=== PATIENT | female | born 1960 | race Caucasian/White ===

== ENCOUNTER → 2020-01-18 | Outpatient (CLI) | payer BC ==
[2019-07-20 13:50] VITALS: BP 113/71
[~2020-01-18] MED LIST: DENOSUMAB 60 MG/1 ML (PROLIA) SQ ONE; DENOSUMAB 60 MG/1 ML (PROLIA) SQ SCH
[2020-01-18 13:15] VITALS: BP 113/70
== END ==
LOC: SDC 07-20 12:47
PROVIDERS: ATTEND Obstetrics & Gynecology
DX: M81.8 Other osteoporosis without current pathological fracture (principal)
CPT/HCPCS: 96372

== ENCOUNTER → 2020-07-11 | Outpatient (CLI) | payer BC ==
[~2020-07-11] MED LIST changes: -DENOSUMAB 60 MG/1 ML (PROLIA) SQ SCH
[2020-07-11 13:50] VITALS: BP 91/63
== END ==
LOC: SDC 12:55
PROVIDERS: ATTEND Obstetrics & Gynecology
DX: M81.0 Age-related osteoporosis without current pathological fracture (principal)
CPT/HCPCS: 96372

== ENCOUNTER 2022-06-09 05:29 | Outpatient (CLI) | payer BC, OTHER ==
[~2022-06-09] VITALS: Ht 170.2 cm; Wt 79.7 kg
[2022-06-09] MEDS ORDERED: CALC-308 PO (10:39)
[2022-06-09] MEDS ORDERED: VITAMIN D (10:39)
[2022-06-09] MEDS ORDERED: RALO60TA12 PO (10:39)
[2022-06-09] MEDS ORDERED: LISI1TAB44 PO (10:39)
== END 2022-06-09 11:34 | disposition home or self-care (01) ==
LOC: PREOP 05:29
PROVIDERS: ATTEND Obstetrics & Gynecology
DX: Z01.818 Encounter for other preprocedural examination (principal)

== ENCOUNTER 2022-06-13 09:43 | Day surgery (SDC) | payer OTHER ==
[2022-06-13] VITALS (13 sets, daily range): BP systolic 108–134; BP diastolic 56–80
[~2022-06-13] VITALS: Ht 170 cm; Wt 79.7 kg
--- NOTE | 2022-06-13 08:34 | Progress Note-Post Operative ---
Post-Operative Progess Note Surgeon (s)/Title Lawyer (s) Surgeon SUMEET ONEAL MD Title Lawyer: LUIS EDUARDO DESAI MD Pre-Operative Diagnosis CURT Post-Operative Diagnosis SAME Procedure & Operative Findings Date of Procedure 06/13/22 Procedure Performed/Findings PVS AND CYSTO Anesthesia Type GENERAL Estimated Blood Loss Estimated blood loss (mL): NONE Specimens/Packing Specimens Removed NONE Packin GM ESTRACE VAG PACK SUMEET ONEAL MD Jun 13, 2022 08:34
[~2022-06-13 09:43] MED LIST changes: +CALC-308 PO; -DENOSUMAB 60 MG/1 ML (PROLIA) SQ ONE; +LISI1TAB44 PO; +RALO60TA12 PO; +VITAMIN D
[2022-06-13] MEDS ORDERED: ESTRADIOL VAGINAL CREAM 42.5 GM (ESTRACE) VG ONE ×2 (10:21→11:58)
[2022-06-13] MEDS ORDERED: ceFAZolin INJECTION 1,000 MG in NS (IVPB) 50 ML IV ONE (10:30)
--- NOTE | 2022-06-13 10:33 | Progress Note-Pre Operative ---
Pre-Operative Progress Note Date of Available H&P: Jun 13, 2022 Date H&P Reviewed: Jun 13, 2022 Time H&P Reviewed: 10:32 History & Physical: H&P Reviewed, Patient Examed, No changes noted, Changes noted below Changes from last HP H&P updated with interim Note Pre-Operative Diagnosis: Vaginal prolapse and stress urinary incontinence LUIS EDUARDO DESAI MD Jun 13, 2022 10:33
--- NOTE | 2022-06-13 10:34 | Progress Note-Post Operative ---
Post-Operative Progess Note Surgeon (s)/Dependency Case Manager (s) Surgeon LUIS EDUARDO DESAI MD Dependency Case Manager: Several Pre-Operative Diagnosis Vaginal prolapse and stress urinary incontinence Post-Operative Diagnosis Same Procedure & Operative Findings Date of Procedure 06/13/22 Procedure Performed/Findings Anterior and posterior vaginal repairs with enterocele repair and with Sacrospinous ligament suspension and with Dr. Hawkins doing a pubovaginal sling and cystoscopy Anesthesia Type General anesthesia Estimated Blood Loss Estimated blood loss (mL): 50 cc Specimens/Packing Specimens Removed None Packing: Kerlix gauze in the vagina LUIS EDUARDO DESAI MD Jun 13, 2022 10:34
[2022-06-13] MEDS ORDERED: LIDOCAINE PF 2% 5 ML (XYLOCAINE) VIAL ONE (10:37)
[2022-06-13] MEDS ORDERED: proPOfol 200 MG/20 ML (DIPRIVAN) VIAL IV ONE (10:37)
[2022-06-13] MEDS ORDERED: ONDANSETRON 4 MG/2 ML (SDV) Z0FRAN ONE (10:37)
[2022-06-13] MEDS ORDERED: ROCURONIUM 10 MG/ML 5 ML SYRINGE IV ONE (10:37)
[2022-06-13] MEDS ORDERED: MIDAZOLAM 2 MG/2 ML (VERSED) VIAL ONE (10:38)
[2022-06-13] MEDS ORDERED: fentaNYL INJ 100 MCG/2 ML AMP ONE (10:38)
[2022-06-13] MEDS ORDERED: IBUP-1780 PO (10:39)
[2022-06-13] MEDS ORDERED: OXYC-199 PO (10:39)
[2022-06-13] MEDS ORDERED: DOCU-143 PO (10:39)
--- NOTE | 2022-06-13 10:41 | Discharge Inst-Surgical ---
Discharge Inst-Surgical Depart Medication/Instructions New, Converted or Re-Newed RX: Transmitted to Pharmacy Consults/Follow Up Patient Instructions: As directed Orders & Referrals Follow Up Appt: Call to make follow up appt. for patient in 4 weeks. Activity: Rest for 24 hours, than as tolerated. Prescription for Percocet Motrin and Colace have been transmitted electronically to patient's pharmacy Diet: As tolerated shower or tub bathe as desired. No driving for 24 hours, no alcoholic beverages for 24 hours, and nothing per vagina (no tampons, douching, or intercoarse) for 2 weeks. No lifting over 10 to 15 pounds for the next 4 weeks Patient to return to the clinic as soon as possible for: Temperature greater than 101F, Severe Pain, Foul discharge from incision or vagina, Excessive Bleeding (more than a period). Activity Activity as Tolerated: No Diet Discharge Diet: No Restrictions LUIS EDUARDO DESAI MD Jun 13, 2022 10:41
[2022-06-13] MEDS ORDERED: ONDANSETRON 4 MG/2 ML (SDV) Z0FRAN IV ONE (10:45)
[2022-06-13] MEDS ORDERED: PROMETHAZINE INJ 25 MG/ML (PHENERGAN) AMP IM PRN (10:45)
[2022-06-13] MEDS ORDERED: SCOPOLAMINE 1.5 MG (TRANSDERM-SCOP) PATCH TOP ONE (10:45)
[2022-06-13] MEDS ORDERED: MEPERIDINE (DEMEROL) INJ 100 MG/ML IVP PRN (10:45)
[2022-06-13] MEDS ORDERED: FAMOTIDINE 20MG/2ML IV (PEPCID) IV ONE (10:45)
[2022-06-13] MEDS ORDERED: ESTROGENS CONJ INJECTION 25 MG in WATER (STERILE) FOR INJECTION 5 ML IV ONE (10:45)
[2022-06-13] MEDS ORDERED: oxyCODONE/APAP 5/325MG (PERCOCET 5) TABLET PO PRN (10:45)
[2022-06-13] MEDS ORDERED: BENZOCAINE/MENTHOL (DERMOPLAST) 56 ML CAN TP PRN (10:45)
[2022-06-13 11:06] LABS: BASOPHILS # (AUTO) 0.1 10^3/uL (0.0-0.1); BASOPHILS % (AUTO) 1 % (0-10); EOSINOPHILS # (AUTO) 0.1 10^3/uL (0.0-0.3); EOSINOPHILS % (AUTO) 2 % (0-10); HEMATOCRIT 42 % (35-52); HEMOGLOBIN 13.9 g/dL (11.5-16.0); LYMPHOCYTES # (AUTO) 1.7 10^3/uL (1.0-4.0); LYMPHOCYTES % (AUTO) 37 % (12-44); MEAN CORPUSCULAR HEMOGLOBIN 28 pg (25-34); MEAN CORPUSCULAR HGB CONC 33 g/dL (32-36); MEAN CORPUSCULAR VOLUME 86 fL (80-99); MEAN PLATELET VOLUME 10.3 fL (9.0-12.2); MONOCYTES # (AUTO) 0.4 10^3/uL (0.0-1.0); MONOCYTES % (AUTO) 10 % (0-12); NEUTROPHILS # (AUTO) 2.2 10^3/uL (1.8-7.8); NEUTROPHILS % (AUTO) 50 % (42-75); PLATELET COUNT 192 10^3/uL (130-400); WHITE BLOOD COUNT 4.5 10^3/uL (4.3-11.0)
[2022-06-13] MEDS: LACTATED RINGERS 1,000 ML IV PRN ×2 (11:28→13:07)
[2022-06-13] MEDS ORDERED: SEVOFLURANE (ULTANE) 15 ML INHAL SOLN ONE (12:42)
[2022-06-13] MEDS ORDERED: ESTROGENS CONJ INJECTION 5 ML ONE (12:53)
[2022-06-13] MEDS ORDERED: KETOROLAC 30 MG/ML VIAL ONE (12:53)
[2022-06-13] MEDS ORDERED: WATER (STERILE) FOR INJECTION 10 ML ONE (12:54)
--- NOTE | 2022-06-13 12:54 | Anesthesia-General Post-Op ---
General Patient Condition Mental Status/LOC: Same as Preop Cardiovascular: Satisfactory Nausea/Vomiting: Absent Respiratory: Satisfactory Pain: Controlled Complications: Absent Post Op Complications Complications None Follow Up Care/Instructions Patient Instructions None needed. Anesthesia/Patient Condition Patient Condition Patient is doing well, no complaints, stable vital signs, no apparent adverse anesthesia problems. No complications reported per nursing. RAMA JOHNSON CRNA Jun 13, 2022 12:54
[2022-06-13] MEDS ORDERED: fentaNYL INJ 100 MCG/2 ML AMP IVP ONE (13:00)
[2022-06-13] MEDS ORDERED: ONDANSETRON 4 MG/2 ML (SDV) Z0FRAN IVP PRN (13:00)
[2022-06-13] MEDS ORDERED: MEPERIDINE (DEMEROL) INJ 50 MG/ML IVP ONE (13:00)
[2022-06-13] MEDS ORDERED: morphine INJ 10 MG/ML 1ML (SYR OR VIAL) IVP ONE (13:00)
[2022-06-13] MEDS: KETOROLAC 30 MG/ML VIAL IV SCH ×2 (13:06→18:55)
[2022-06-13] MEDS ORDERED: KETOROLAC 30 MG/ML VIAL IV SCH (14:00)
[2022-06-13] MEDS ORDERED: MEPERIDINE (DEMEROL) INJ 100 MG/ML IM PRN (18:45)
[2022-06-13] MEDS: D5 LR IV SOLUTION 1,000 ML IV SCH ×2 (19:19→19:51)
[2022-06-13] MEDS: ONDANSETRON 4 MG/2 ML (SDV) Z0FRAN IVP PRN ×2 (19:50→23:49)
--- NOTE | 2022-06-13 23:42 | OPERATIVE REPORT ---
DATE OF SERVICE: 06/13/2022 PREOPERATIVE DIAGNOSES: Vaginal prolapse and stress urinary incontinence. POSTOPERATIVE DIAGNOSES: Vaginal prolapse and stress urinary incontinence. PROCEDURE: Anterior and posterior vaginal repair with enterocele repair as well as sacrospinous ligament suspension and with Dr. Remy doing a pubovaginal sling and cystoscopy. DESCRIPTION OF PROCEDURE: With the patient in the supine position, under satisfactory general anesthesia, she was repositioned in the dorsal lithotomy position in the Ezekiel stirrups and prepped and draped in the usual fashion for vaginal surgery. Weighted speculum was placed in the posterior fornix of the vagina. Anterior vaginal wall was grasped with 2 Marleny clamps and the vaginal wall was opened in the midline. The patient had a third-degree plus cystocele. The bladder wall was carefully dissected off of the bladder back to the pubic rami bilaterally. The bladder was then repositioned in the pelvis. The endopelvic fascia and the bladder wall were plicated with 2-0 Vicryl sutures in 3 layers to elevate the bladder back into the pelvis and to lengthen the urethra. At this point, Dr. Remy assumed care of the patient for a pubovaginal sling and cystoscopy, which he will dictate. Upon completion of Dr. Remy portion of the procedure, which I had stayed to assist. I resumed care of the patient, resected the redundant anterior vaginal wall muscularis and mucosa and then closed the vaginal wall with a running locked suture of 3-0 Vicryl Rapide. Hemostasis was complete and good support was evident. Dr. Remy left the Duckworth catheter to dependent drainage and was draining clear yellow urine. Posterior repair was effected by placing Marleny clamps on the perineum and the hymenal ring at 5 and 7 o'clock position and an inverted triangle of skin was removed from the perineal body in the upright triangle from the posterior vaginal floor. The rectovaginal space was then entered sharply and dissected bluntly to the apex of the vagina, where it was explored for an enterocele. There was a relatively moderate sized enterocele that was reduced and then plicated with two 2-0 Vicryl pursestring sutures. This obliterated the enterocele. The rectovaginal space was then obliterated with additional sutures of 2-0 Vicryl and the perineal body was restored with the same sutures. Redundant posterior vaginal wall muscularis and mucosa was removed sharply. Sacrospinous ligament suspension sutures had been placed prior to obliterating the rectovaginal space, 2-0 Ethibond using the Capio device. Those sutures were double-armed, each arm, both sutures were brought out through the apex of the vagina. They were now tied, pulling the vagina well back up into the pelvis. The posterior vaginal wall muscularis and mucosa that was redundant had been removed. The vaginal wall was closed with a running locked suture also of 3-0 Vicryl Rapide that closure had continued to the hymenal ring and down on the perineal body and back up subcuticularly to the hymenal ring, where the suture was tied. Digital rectal exam confirmed no stricture or stenosis of the rectum and no sutures into it through the rectal mucosa. The sacrospinous ligament suspension sutures were tied that did support to the apex of the vagina into the pelvis nicely. Duckworth catheter was left to dependent drainage. Sponge and needle counts were correct. Blood loss was around 50 mL. The patient was now uneventfully awakened from her general anesthesia and transferred to recovery room in stable condition. Job ID: [id number] DocumentID: [id number] Dictated Date: 06/13/2022 13:42:27 Hardware Engineering Manager Date: 06/13/2022 23:40:00 Dictated By: LUIS EDUARDO DESAI MD
[2022-06-14 00:42] VITALS: BP 103/55
[2022-06-14] MEDS: KETOROLAC 30 MG/ML VIAL IV SCH ×2 (00:42→06:47)
[2022-06-14] MEDS: D5 LR IV SOLUTION 1,000 ML IV SCH (03:49)
[2022-06-14 03:57] VITALS: BP 92/45
[2022-06-14 08:14] VITALS: BP 91/54
[2022-06-14] MEDS ORDERED: DOCUSATE SODIUM 100 MG (COLACE) CAP PO SCH (09:00)
--- NOTE | 2022-06-14 09:50 | Progress Note ---
Standard Progress Note Progress Notes/Assess & Plan Date Seen by a Provider: Jun 14, 2022 Time Seen by a Provider: 09:49 Progress/Assessment & Plan This patient is without complaint. She is ambulating, voiding, tolerating oral intake well and has good pain control. Patient denies chest pain, denies shortness of breath, denies nausea and vomiting, and denies headache. Vital Signs Date Time Temp Pulse Resp B/P (MAP) Pulse Ox O2 Delivery O2 Flow Rate FiO2 06/14/22 08:14 37.5 68 18 91/54 (66) 99 Room Air 06/14/22 03:57 36.0 55 18 92/45 (61) 96 Nasal Cannula 3.00 06/14/22 00:42 36.6 68 18 103/55 (71) 96 Nasal Cannula 3.00 06/13/22 20:37 96 Nasal Cannula 3.00 06/13/22 20:37 36.3 77 18 108/56 (73) 96 Nasal Cannula 3.00 06/13/22 20:36 87 Room Air 06/13/22 18:53 36.0 69 18 110/64 (79) 96 Room Air 06/13/22 16:27 93 Nasal Cannula 2.00 06/13/22 14:40 60 16 117/56 (76) 99 Room Air 06/13/22 14:05 35.6 67 16 134/65 (88) 100 Nasal Cannula 3.00 06/13/22 14:00 36.6 20 127/73 (91) 98 Nasal Cannula 4.00 06/13/22 14:00 Nasal Cannula 4.00 06/13/22 13:50 20 127/72 (90) 98 Nasal Cannula 4.00 06/13/22 13:45 Nasal Cannula 4.00 06/13/22 13:40 20 126/73 (90) 96 Room Air 06/13/22 13:30 OxyMask 4.00 06/13/22 13:30 20 125/75 (92) 96 OxyMask 4.00 06/13/22 13:20 20 127/80 (96) 97 OxyMask 6.00 06/13/22 13:15 OxyMask 6.00 06/13/22 13:10 20 127/80 (96) 99 OxyMask 6.00 06/13/22 13:00 OxyMask 6.00 06/13/22 13:00 20 127/74 (91) 100 OxyMask 6.00 06/13/22 12:49 36.6 20 126/76 (93) 100 OxyMask 6.00 06/13/22 12:49 OxyMask 6.00 06/13/22 09:55 36.8 74 18 111/77 (88) 95 Room Air I & O 06/14/22 07:00 Intake Total 3250 ml Output Total 915 ml Balance 2335 ml Vital signs are stable. Patient is afebrile. The abdomen is benign. Extremities show no clubbing or cyanosis. There is no Homans' sign. Pelvic exam was deferred Assessment and plan Postoperative day #1 doing well. Patient is ambulating and voiding and tolerating oral intake. Plan will be for discharge home with follow-up in clinic Final Diagnosis Vaginal prolapse LUIS EDUARDO DESAI MD Jun 14, 2022 09:50
[2022-06-14] MEDS ORDERED: CIPR250S3 PO (10:10)
[2022-06-14] MEDS ORDERED: IBUPROFEN 800 MG (MOTRIN) TAB PO SCH (10:45)
[2022-06-14 11:38] VITALS: BP 108/52
[2022-06-14 13:40] VITALS: BP 108/52
--- NOTE | 2022-06-14 19:27 | OPERATIVE REPORT ---
DATE OF SERVICE: 06/13/2022 PREOPERATIVE DIAGNOSIS: ____ stress urinary incontinence. POSTOPERATIVE DIAGNOSIS: ____ stress urinary incontinence. OPERATION PERFORMED: Pubovaginal sling and cystoscopy. SURGEON: Sumeet Oneal MD. TRAIN EXAMINER: Dr. Curt Pimentel. ANESTHESIA: General. COMPLICATIONS: None. DESCRIPTION OF PROCEDURE: After Dr. Pimentel performed the first part of his surgery that he will dictate, I passed Desara One device on both sides using the described technique. The sling was sitting nicely under the mid urethra with no twisting, no tension and passage of a curved hemostat easily between it and the underlying tissue. I removed the Duckworth catheter and performed cystoscopy to confirm the integrity of the bladder, ureteral orifice and urethra. There was no foreign body anyways. The position of the sling is under the mid urethra. I left the bladder half full, removed the cystoscope and performed manual Valsalva maneuver that was negative. I reinserted a Duckworth catheter draining clear fluid. Dr. Pimentel proceeded to do rest of his surgery that he will dictate. Estimated blood loss for my part, none. The patient tolerated the procedure and anesthesia well. Job ID: [id number] DocumentID: [id number] Dictated Date: 06/14/2022 09:54:22 Inspector Eyeglass Date: 06/14/2022 18:25:00 Dictated By: SUMEET ONEAL MD
== END 2022-06-14 13:40 | disposition home or self-care (01) ==
LOC: SDC 09:43 → WS 13:21 → SDC 06-14 13:40
PROVIDERS: ATTEND Obstetrics & Gynecology
DX: N39.3 Stress incontinence (female) (male) (principal); N81.10 Cystocele, unspecified; N81.5 Vaginal enterocele
CPT/HCPCS: 36415; 85025; 87081; 94664

== ENCOUNTER → 2023-01-26 | Outpatient (CLI) | payer OTHER ==
[~2023-01-26] MED LIST changes: +CIPR250S4 PO; +DOCU-143 PO; +IBUP-1780 PO; +OXYC-199 PO
[2023-01-26 10:03] LABS: ALBUMIN 4.2 GM/DL (3.2-4.5); BILIRUBIN,TOTAL 0.7 MG/DL (0.1-1.0); CALCIUM 9.7 MG/DL (8.5-10.1); CREATININE SERUM 0.73 MG/DL (0.60-1.30); POTASSIUM 3.6 MMOL/L (3.6-5.0); TOTAL PROTEIN 7.2 GM/DL (6.4-8.2)
== END ==
LOC: LAB 09:13
PROVIDERS: ATTEND Nurse Practitioner
DX: R94.5 Abnormal results of liver function studies (principal)
CPT/HCPCS: 36415; 80053